=== PATIENT | female | born 1975 | race Caucasian/White ===

== ENCOUNTER → 2017-11-28 | Outpatient (CLI) | payer OTHER ==
--- NOTE | 2017-12-04 11:23 | MM ---
Reason for exam: screening (asymptomatic). Last mammogram was performed 2 years and 11 months ago. History: Family history of breast cancer in paternal grandmother and breast cancer in cousin. Benign MG stereo VAD BX LT of the left breast, January 02, 2015. Physical Findings: A clinical breast exam by your physician is recommended on an annual basis and results should be correlated with mammographic findings. MG Screening Mammo w CAD Bilateral CC and MLO view(s) were taken. Prior study comparison: December 26, 2014, mammogram, performed at [facility]. October 05, 2014, mammogram, performed at [facility]. The breast tissue is heterogeneously dense. This may lower the sensitivity of mammography. Finding: There are indeterminate calcifications in the upper outer quadrant of the left breast. New finding since December 26, 2014 and October 05, 2014. ASSESSMENT: Incomplete: need additional imaging evaluation, BI-RAD 0 RECOMMENDATION: Special view mammogram of the left breast. [facility] will attempt to contact patient to return for supplemental views.
== END | disposition home or self-care (01) ==
LOC: RADMAMWWP 11:25
PROVIDERS: ATTEND Obstetrics & Gynecology
DX: Z12.31 Encounter for screening mammogram for malignant neoplasm of breast (principal)
CPT/HCPCS: 77067

== ENCOUNTER → 2017-12-17 | Outpatient (CLI) | payer OTHER ==
--- NOTE | 2017-12-17 12:00 | MM ---
Reason for exam: additional evaluation requested from abnormal screening. Last mammogram was performed 1 month ago. History: Family history of breast cancer in paternal grandmother and breast cancer in cousin. Benign MG stereo VAD BX LT of the left breast, January 02, 2015. Physical Findings: Nurse did not find any significant physical abnormalities on exam. MG Work Up Mamm w CAD LT Spot compression CC and spot compression MLO view(s) were taken of the left breast. Prior study comparison: November 28, 2017, bilateral MG screening mammo w CAD. December 26, 2014, mammogram, performed at [facility]. The breast tissue is heterogeneously dense. This may lower the sensitivity of mammography. Finding: There are typically benign fine, diffuse, regional calcifications in the upper outer quadrant, middle position of the left breast. There is no discrete abnormality on compression. Focal asymmetry left upper outer quadrant. No significant changes in finding since November 28, 2017 and December 26, 2014. These results were verbally communicated with the patient and result sheet given to the patient on 12/17/17. ASSESSMENT: Benign, BI-RAD 2 RECOMMENDATION: Return to routine screening mammogram schedule for both breasts.
== END | disposition home or self-care (01) ==
LOC: RADMAMWWP 10:44
PROVIDERS: ATTEND Obstetrics & Gynecology
DX: R92.8 Other abnormal and inconclusive findings on diagnostic imaging of breast (principal)
CPT/HCPCS: 77065

== ENCOUNTER 2018-06-06 11:23 | Inpatient (IN) | payer OTHER ==
[2018-06-06] MEDS: SODIUM CHLORIDE 0.9% 500 ML IV SCH (12:52)
[2018-06-06 12:57] LABS: Basophils % (A) 0 %; Eosinophils # (A) 0.2 k/uL (0-0.7); Eosinophils % (A) 1 %; HGB 16.3 gm/dL (11.4-16.0); Lymphocytes # (A) 1.8 k/uL (1.0-4.8); Lymphocytes % (A) 12 %; MCH 33.4 pg (25.0-35.0); MCV 98.3 fL (80.0-100.0); Mean Platelet Volume 6.9; Monocytes # (A) 0.8 k/uL (0-1.0); Monocytes % (A) 5 %; Neutrophils # (A) 12.3 k/uL (1.3-7.7); Neutrophils % (A) 81 %; Platelet Count 320 k/uL (150-450); RBC 4.88 m/uL (3.80-5.40); RDW 12.3 % (11.5-15.5); WBC 15.2 k/uL (3.8-10.6)
[2018-06-06 13:05] LABS: INR 0.9 (<1.2); Partial Thromboplastin Time 24.1 sec (22.0-30.0); Prothrombin Time 9.3 sec (9.0-12.0)
[2018-06-06 13:06] LABS: ALT 118 U/L (9-52); AST 29 U/L (14-36); Alkaline Phosphatase 76 U/L (38-126); Anion Gap 9 mmol/L; Blood Urea Nitrogen 14 mg/dL (7-17); Calcium 9.4 mg/dL (8.4-10.2); Carbon Dioxide 23 mmol/L (22-30); Chloride 105 mmol/L (98-107); Glucose 100 mg/dL (74-99); Sodium 137 mmol/L (137-145); Total Bilirubin 1.1 mg/dL (0.2-1.3); Total Protein 6.8 g/dL (6.3-8.2)
[2018-06-06] MEDS ORDERED: IBUPROFEN 800 MG TAB PO STA (13:22)
--- NOTE | 2018-06-06 13:22 | ED ---
General Adult HPI - General Chief complaint: Abdominal Pain Stated complaint: Abd.pain Time Seen by Provider: 06/06/18 12:14 Source: patient Mode of arrival: ambulatory Limitations: no limitations - History of Present Illness Initial comments: Sejal is a 42 yo F with PMH listed below who presents to the ED today for evaluation of lower abdominal pain. Patient reports that she was seen by her primary care physician earlier in the week and diagnosed with an upper respiratory tract infection, she was prescribed azithromycin which she began taking on Thursday. Patient reports on Thursday she developed diarrhea which persisted throughout the week. She completed her course of azithromycin on Thursday and states that she has not had diarrhea since that time, however she has had progressively worsening lower abdominal pain and constipation. Patient reports that she had pain constantly throughout the day yesterday, pain is worse with movement or palpation. She attempted to sleep it off but this morning states the pain had increased in severity so she went to an urgent care where a urinalysis revealed that she had no urinary tract infection and she was advised to come to the ER for further evaluation. Patient has no history or known family history of any inflammatory bowel disease or early colon cancer. She has never had a colonoscopy been evaluated by gastroenterology for any reason. Patient complains of subjective fever, chills, nausea, decreased appetite, recent diarrhea, constipation and abdominal pain. She denies any chest pain, palpitations or shortness of breath. She denies any rashes, numbness and tingling in her extremities or pain. - Related Data Home Medications Medication Instructions Recorded Confirmed No Known Home Medications 06/06/18 06/06/18 Allergies Allergy/AdvReac Type Severity Reaction Status Date / Time Opioids - Morphine Analogues AdvReac Nausea & Verified 06/06/18 12:07 Vomiting Review of Systems ROS Statement: Those systems with pertinent positive or pertinent negative responses have been documented in the HPI. ROS Other: All systems not noted in ROS Statement are negative. Constitutional: Reports: fever (subjective), chills ENT: Denies: throat pain Respiratory: Reports: cough (earlier this week, resolved) Cardiovascular: Denies: chest pain, palpitations Endocrine: Reports: fatigue Gastrointestinal: Reports: abdominal pain, nausea, diarrhea, constipation Genitourinary: Denies: urgency, dysuria Musculoskeletal: Denies: back pain Skin: Denies: rash Neurological: Denies: headache Hematological/Lymphatic: Denies: easy bleeding, easy bruising Past Medical History Past Medical History: Hyperlipidemia Additional Past Medical History / Comment(s): endometriosis History of Any Multi-Drug Resistant Organisms: None Reported Past Surgical History: Breast Surgery, Tubal Ligation, Uterine Ablation Additional Past Surgical History / Comment(s): D & C X3. LAPAROSCOPY. REPAIR OF DRILL INJURY TO RT HAND. LT BREAST BX Past Anesthesia/Blood Transfusion Reactions: Motion Sickness, Postoperative Nausea & Vomiting (PONV) Past Psychological History: Anxiety Smoking Status: Current every day smoker Past Alcohol Use History: Occasional Past Drug Use History: None Reported - Past Family History Mother Family Medical History: No Reported History General Exam Limitations: no limitations General appearance: alert, other (appears uncomfortable) Head exam: Present: atraumatic, normocephalic Eye exam: Present: normal appearance, PERRL ENT exam: Present: mucous membranes dry Neck exam: Present: normal inspection Respiratory exam: Absent: respiratory distress Cardiovascular Exam: Present: normal rhythm, tachycardia GI/Abdominal exam: Present: soft, tenderness, diminished bowel sounds Rectal exam: Present: deferred Extremities exam: Present: normal inspection Back exam: Present: normal inspection Neurological exam: Present: alert, oriented X3 Psychiatric exam: Present: normal affect, normal mood Skin exam: Present: warm, dry Course Vital Signs 06/06/18 06/06/18 12:05 12:54 Temperature 100.2 F H Pulse Rate 106 H 96 Respiratory 18 18 Rate Blood Pressure 113/74 123/57 O2 Sat by Pulse 97 93 L Oximetry - Reevaluation(s) Reevaluation #1: Patient was updated on CT findings, plan for admission for IV antibiotics and evaluation by general surgery. 06/06/18 14:50 Medical Decision Making - Medical Decision Making Patient was seen and evaluated, history was obtained from the patient and review of medical record for metastatic breast The patient with recent antibiotic use now presenting with lower abdominal pain , subjective fever and chills Labs and imaging were ordered Patient became febrile and Motrin was ordered Labs reveal leukocytosis, no evidence of a urinary tract infection Computed tomography scan reveals diverticulitis with small perforation with abscess. At this time a source for sepsis was identified and sepsis was identified. IV antibiotics were ordered as well as lactic and blood cultures. Patient was updated on the findings and is agreeable to plan for IV antibiotics and admission to the hospital for evaluation by general surgery. Patient care was discussed with Dr. Cheema of the Gen. surgery team who agrees with antibiotic choice, patient to be made nothing by mouth and admitted to the hospital. Admission orders were placed. - Lab Data Result diagrams: 06/06/18 12:48 06/06/18 12:48 Lab Results 06/06/18 06/06/18 06/06/18 Range/Units 12:18 12:40 12:48 WBC 15.2 H (3.8-10.6) k/uL RBC 4.88 (3.80-5.40) m/uL Hgb 16.3 H (11.4-16.0) gm/dL Hct 48.0 H (34.0-46.0) % MCV 98.3 (80.0-100.0) fL MCH 33.4 (25.0-35.0) pg MCHC 34.0 (31.0-37.0) g/dL RDW 12.3 (11.5-15.5) % Plt Count 320 (150-450) k/uL Neutrophils % 81 % Lymphocytes % 12 % Monocytes % 5 % Eosinophils % 1 % Basophils % 0 % Neutrophils # 12.3 H (1.3-7.7) k/uL Lymphocytes # 1.8 (1.0-4.8) k/uL Monocytes # 0.8 (0-1.0) k/uL Eosinophils # 0.2 (0-0.7) k/uL Basophils # 0.0 (0-0.2) k/uL PT (9.0-12.0) sec INR (<1.2) APTT (22.0-30.0) sec Sodium (137-145) mmol/L Potassium (3.5-5.1) mmol/L Chloride (98-107) mmol/L Carbon Dioxide (22-30) mmol/L Anion Gap mmol/L BUN (7-17) mg/dL Creatinine (0.52-1.04) mg/dL Est GFR (CKD-EPI)AfAm (>60 ml/min/1.73 sqM) Est GFR (CKD-EPI)NonAf (>60 ml/min/1.73 sqM) Glucose (74-99) mg/dL Plasma Lactic Acid [place] 0.9 (0.7-2.0) mmol/L Calcium (8.4-10.2) mg/dL Total Bilirubin (0.2-1.3) mg/dL AST (14-36) U/L ALT (9-52) U/L Alkaline Phosphatase (38-126) U/L Total Protein (6.3-8.2) g/dL Albumin (3.5-5.0) g/dL Urine Color Yellow Urine Appearance Cloudy H (Clear) Urine pH 6.5 (5.0-8.0) Ur Specific [place] 1.012 (1.001-1.035) Urine Protein Negative (Negative) Urine Glucose (UA) Negative (Negative) Urine Ketones Negative (Negative) Urine Blood Negative (Negative) Urine Nitrite Negative (Negative) Urine Bilirubin Negative (Negative) Urine Urobilinogen <2.0 (<2.0) mg/dL Ur Leukocyte Esterase Negative (Negative) Urine RBC 1 (0-5) /hpf Urine WBC 3 (0-5) /hpf Ur Squamous Epith Cells 12 H (0-4) /hpf Amorphous Sediment Rare H (None) /hpf Urine Bacteria Moderate H (None) /hpf Urine Mucus Occasional H (None) /hpf 06/06/18 06/06/18 Range/Units 12:48 12:48 WBC (3.8-10.6) k/uL RBC (3.80-5.40) m/uL Hgb (11.4-16.0) gm/dL Hct (34.0-46.0) % MCV (80.0-100.0) fL MCH (25.0-35.0) pg MCHC (31.0-37.0) g/dL RDW (11.5-15.5) % Plt Count (150-450) k/uL Neutrophils % % Lymphocytes % % Monocytes % % Eosinophils % % Basophils % % Neutrophils # (1.3-7.7) k/uL Lymphocytes # (1.0-4.8) k/uL Monocytes # (0-1.0) k/uL Eosinophils # (0-0.7) k/uL Basophils # (0-0.2) k/uL PT 9.3 (9.0-12.0) sec INR 0.9 (<1.2) APTT 24.1 (22.0-30.0) sec Sodium 137 (137-145) mmol/L Potassium 4.0 (3.5-5.1) mmol/L Chloride 105 (98-107) mmol/L Carbon Dioxide 23 (22-30) mmol/L Anion Gap 9 mmol/L BUN 14 (7-17) mg/dL Creatinine 0.73 (0.52-1.04) mg/dL Est GFR (CKD-EPI)AfAm >90 (>60 ml/min/1.73 sqM) Est GFR (CKD-EPI)NonAf >90 (>60 ml/min/1.73 sqM) Glucose 100 H (74-99) mg/dL Plasma Lactic Acid [place] (0.7-2.0) mmol/L Calcium 9.4 (8.4-10.2) mg/dL Total Bilirubin 1.1 (0.2-1.3) mg/dL AST 29 (14-36) U/L ALT 118 H (9-52) U/L Alkaline Phosphatase 76 (38-126) U/L Total Protein 6.8 (6.3-8.2) g/dL Albumin 4.0 (3.5-5.0) g/dL Urine Color Urine Appearance (Clear) Urine pH (5.0-8.0) Ur Specific [place] (1.001-1.035) Urine Protein (Negative) Urine Glucose (UA) (Negative) Urine Ketones (Negative) Urine Blood (Negative) Urine Nitrite (Negative) Urine Bilirubin (Negative) Urine Urobilinogen (<2.0) mg/dL Ur Leukocyte Esterase (Negative) Urine RBC (0-5) /hpf Urine WBC (0-5) /hpf Ur Squamous Epith Cells (0-4) /hpf Amorphous Sediment (None) /hpf Urine Bacteria (None) /hpf Urine Mucus (None) /hpf Disposition Clinical Impression: Diverticulitis, Sepsis Disposition: ADMITTED IP TO THIS HOSP Decision Time: 14:35
[2018-06-06 13:36] LABS: Amorphous Sediment,Urine Rare /hpf; Appearance,Urine Cloudy (Clear); Bacteria,Urine Moderate /hpf; Bilirubin,Urine Negative (Negative); Blood,Urine Negative (Negative); Color,Urine Yellow; Glucose,Urine (UA) Negative (Negative); Ketones,Urine Negative (Negative); Leukocyte Esterase,Urine Negative (Negative); Mucus,Urine Occasional /hpf; Nitrite,Urine Negative (Negative); PH, Urine 6.5 (5.0-8.0); Protein,Urine Negative (Negative); RBC,Urine 1 /hpf (0-5); Specific Gravity,Urine 1.012 (1.001-1.035); Squamous Epithelial Cell,Urine 12 /hpf (0-4); Urobilinogen,Urine <2.0 mg/dL (<2.0); WBC,Urine 3 /hpf (0-5)
--- NOTE | 2018-06-06 14:31 | CT ---
EXAMINATION TYPE: CT abdomen pelvis w con DATE OF EXAM: 06/06/2018 COMPARISON: None HISTORY: Stomach pains and fever CT DLP: 579.1 mGycm Automated exposure control for dose reduction was used. TECHNIQUE: Helical acquisition of images from the lung bases through the pelvis have been completed. CONTRAST: Performed without Oral Contrast and with IV Contrast, patient injected with 100 mL of Isovue 300. FINDINGS: LUNG BASES: No significant abnormality is appreciated. AORTA: No significant abnormality is appreciated. LIVER/GB: No significant abnormality is appreciated. PANCREAS: No significant abnormality is seen. SPLEEN: No significant abnormality is seen. ADRENALS: No significant abnormality is seen. KIDNEYS: No significant abnormality is seen. REPRODUCTIVE ORGANS: No significant abnormality is seen BOWEL: Inflammatory changes present with associated diverticular change in the sigmoid colon. Minima l diverticular abscess is present axial image 72, there is air-fluid level, maximal dimension only ap proximately 1.5 cm. FREE AIR: Small foci of free air are present. ASCITES: None visible. PELVIC ADENOPATHY: None visualized. RETROPERITONEAL ADENOPATHY: No Retroperitoneal Adenopathy visible. URINARY BLADDER: No significant abnormality is seen. OSSEOUS STRUCTURES: No significant abnormality is seen. IMPRESSION: DIVERTICULITIS WITH SMALL DIVERTICULAR ABSCESS, SOME LOCAL EXTRALUMINAL AIR COMPATIBLE WITH PERFORATI ON. REPORT RELAYED TO DENNISE TELEPHONICALLY AT THE TIME OF INTERPRETATION.
[2018-06-06] MEDS ORDERED: PIPERACILLIN-TAZOBACTAM 3.375 GM in DEXTROSE/WATER 1 50ML.BAG IVPB STA (14:33)
[2018-06-06] MEDS ORDERED: metroNIDAZOLE-NS PMX 500 MG in SALINE 1 100ML.BAG IVPB STA (14:40)
[2018-06-06] MEDS ORDERED: NALOXONE 0.4 MG/ML 1 ML VIAL IV PRN (14:42)
[2018-06-06] MEDS: SODIUM CHLORIDE 0.9% 1,000 ML IV SCH (15:30)
[2018-06-06 16:49] VITALS: BMI 25.2
[2018-06-06] MEDS: ONDANSETRON 4 MG/2 ML VIAL IVP PRN (18:38)
--- NOTE | 2018-06-06 19:35 | P.GSHP ---
History of Present Illness H&P Date: 06/06/18 Chief Complaint: Diverticulitis The patient's a 42-year-old female that presented to the emergency room with a several-day history of abdominal pain. The last 2-3 days she is pretty much been laying on the couch and sleeping. She hasn't felt like eating anything or drinking much yesterday. She was having vomiting yesterday. She was treated for an upper respiratory infection with Zithromax earlier in the week. She also began developing diarrhea on Thursday and that's been persisting. Never had diverticulitis in the past. Normally her bowels are regular. There is no family history of GI malignancy or inflammatory bowel disease. She's never had a colonoscopy. She's had chills but denies fever. - Review of Systems All systems: negative Past Medical History Past Medical History: Hyperlipidemia Additional Past Medical History / Comment(s): endometriosis History of Any Multi-Drug Resistant Organisms: None Reported Past Surgical History: Breast Surgery, Tubal Ligation, Uterine Ablation Additional Past Surgical History / Comment(s): D & C X3. LAPAROSCOPY. REPAIR OF DRILL INJURY TO RT HAND. LT BREAST BX Past Anesthesia/Blood Transfusion Reactions: Motion Sickness, Postoperative Nausea & Vomiting (PONV) Additional Past Anesthesia/Blood Transfusion Reaction / Comment(s): hard to wake up patient states Smoking Status: Current every day smoker - Past Family History Mother Family Medical History: No Reported History Medications and Allergies Home Medications Medication Instructions Recorded Confirmed Type Albuterol Inhaler [Ventolin Hfa 1 - 2 puff INHALATION RT-Q6H PRN 06/06/18 History Inhaler] Allergies Allergy/AdvReac Type Severity Reaction Status Date / Time Opioids - Morphine Analogues AdvReac Nausea & Verified 06/06/18 15:09 Vomiting Surgical - Exam Osteopathic Statement: *. No significant issues noted on an osteopathic structural exam other than those noted in the History and Physical/Consult. Vital Signs Temp Pulse Resp BP Pulse Ox 100.2 F H 106 H 18 113/74 97 06/06/18 12:05 06/06/18 12:05 06/06/18 12:05 06/06/18 12:05 06/06/18 12:05 - General well developed, well nourished, no distress - Eyes normal ocular movement - ENT no congestion - Neck trachea midline - Respiratory normal expansion, normal respiratory effort, clear to auscultation - Cardiovascular Rhythm: regular Abnormal Heart Sounds: no systolic murmur - Abdomen Abdomen: soft, tender (Left lower quadrant suprapubic), guarding (Voluntary guarding), rebound (Tender to percussion), no distended - Psychiatric oriented to time, oriented to person, oriented to place, speech is normal, memory intact Results - Labs 06/06/18 12:48 06/06/18 12:48 Abnormal Lab Results - Last 24 Hours (Table) 06/06/18 06/06/18 06/06/18 Range/Units 12:18 12:48 12:48 WBC 15.2 H (3.8-10.6) k/uL Hgb 16.3 H (11.4-16.0) gm/dL Hct 48.0 H (34.0-46.0) % Neutrophils # 12.3 H (1.3-7.7) k/uL Glucose 100 H (74-99) mg/dL ALT 118 H (9-52) U/L Urine Appearance Cloudy H (Clear) Ur Squamous Epith Cells 12 H (0-4) /hpf Amorphous Sediment Rare H (None) /hpf Urine Bacteria Moderate H (None) /hpf Urine Mucus Occasional H (None) /hpf Diabetes panel 06/06/18 Range/Units 12:48 Sodium 137 (137-145) mmol/L Potassium 4.0 (3.5-5.1) mmol/L Chloride 105 (98-107) mmol/L Carbon Dioxide 23 (22-30) mmol/L BUN 14 (7-17) mg/dL Creatinine 0.73 (0.52-1.04) mg/dL Glucose 100 H (74-99) mg/dL Calcium 9.4 (8.4-10.2) mg/dL AST 29 (14-36) U/L ALT 118 H (9-52) U/L Alkaline Phosphatase 76 (38-126) U/L Total Protein 6.8 (6.3-8.2) g/dL Albumin 4.0 (3.5-5.0) g/dL Calcium panel 06/06/18 Range/Units 12:48 Calcium 9.4 (8.4-10.2) mg/dL Albumin 4.0 (3.5-5.0) g/dL Pituitary panel 06/06/18 Range/Units 12:48 Sodium 137 (137-145) mmol/L Potassium 4.0 (3.5-5.1) mmol/L Chloride 105 (98-107) mmol/L Carbon Dioxide 23 (22-30) mmol/L BUN 14 (7-17) mg/dL Creatinine 0.73 (0.52-1.04) mg/dL Glucose 100 H (74-99) mg/dL Calcium 9.4 (8.4-10.2) mg/dL Adrenal panel 06/06/18 Range/Units 12:48 Sodium 137 (137-145) mmol/L Potassium 4.0 (3.5-5.1) mmol/L Chloride 105 (98-107) mmol/L Carbon Dioxide 23 (22-30) mmol/L BUN 14 (7-17) mg/dL Creatinine 0.73 (0.52-1.04) mg/dL Glucose 100 H (74-99) mg/dL Calcium 9.4 (8.4-10.2) mg/dL Total Bilirubin 1.1 (0.2-1.3) mg/dL AST 29 (14-36) U/L ALT 118 H (9-52) U/L Alkaline Phosphatase 76 (38-126) U/L Total Protein 6.8 (6.3-8.2) g/dL Albumin 4.0 (3.5-5.0) g/dL - Imaging CT scan - abdomen: report reviewed, image reviewed Assessment and Plan (1) Perforation of intestine due to diverticulitis of gastrointestinal tract Current Visit: Yes Status: Acute Code(s): K63.1 - PERFORATION OF INTESTINE ( NONTRAUMATIC); K57.92 - DVTRCLI OF INTEST, PART UNSP, W/O PERF OR ABSCESS W/O BLEED SNOMED Code(s): 6309592515781325 (2) Diverticulitis Current Visit: Yes Status: Acute Code(s): K57.92 - DVTRCLI OF INTEST, PART UNSP, W/O PERF OR ABSCESS W/O BLEED SNOMED Code(s): 411264165 (3) Sepsis Current Visit: Yes Status: Acute Code(s): A41.9 - SEPSIS, UNSPECIFIED ORGANISM SNOMED Code(s): 09728091 Plan: The study appears to be diverticulitis with a small contained perforation. We' ll attempt to treat this medically with IV antibiotics and bowel rest. We'll do DVT and ulcer prophylaxis. Explained to her and her that if she shows signs of worsening she may need to go for emergency surgery which would result in a temporary colostomy formation. We'll monitor her closely with further recommendations to follow.
[2018-06-06] MEDS: MORPHINE SULFATE 4 MG/ML SYRINGE IV PRN ×2 (19:58→20:11)
[2018-06-06] MEDS: KETOROLAC 30 MG/ML 1 ML VIAL IVP SCH (20:08)
[2018-06-07] MEDS: KETOROLAC 30 MG/ML 1 ML VIAL IVP SCH ×4 (00:01→18:01)
[2018-06-07] MEDS: SODIUM CHLORIDE 0.9% 1,000 ML IV SCH (00:10)
[2018-06-07 06:44] LABS: Basophils # (A) 0.1 k/uL (0-0.2); Basophils % (A) 1 %; Eosinophils # (A) 0.4 k/uL (0-0.7); Eosinophils % (A) 3 %; HCT 43.5 % (34.0-46.0); HGB 14.7 gm/dL (11.4-16.0); Lymphocytes # (A) 1.4 k/uL (1.0-4.8); Lymphocytes % (A) 11 %; MCH 33.7 pg (25.0-35.0); MCHC 33.7 g/dL (31.0-37.0); MCV 99.9 fL (80.0-100.0); Mean Platelet Volume 7.2; Monocytes # (A) 0.7 k/uL (0-1.0); Monocytes % (A) 5 %; Neutrophils # (A) 9.8 k/uL (1.3-7.7); Neutrophils % (A) 79 %; Platelet Count 298 k/uL (150-450); RBC 4.36 m/uL (3.80-5.40); RDW 12.3 % (11.5-15.5); WBC 12.4 k/uL (3.8-10.6)
[2018-06-07 06:58] LABS: ALT 81 U/L (9-52); AST 22 U/L (14-36); Alkaline Phosphatase 62 U/L (38-126); Anion Gap 6 mmol/L; Blood Urea Nitrogen 14 mg/dL (7-17); Calcium 8.5 mg/dL (8.4-10.2); Carbon Dioxide 21 mmol/L (22-30); Chloride 111 mmol/L (98-107); Glucose 89 mg/dL (74-99); Magnesium 1.9 mg/dL (1.6-2.3); Potassium 4.2 mmol/L (3.5-5.1); Sodium 138 mmol/L (137-145); Total Protein 5.5 g/dL (6.3-8.2)
[2018-06-07] MEDS: PANTOPRAZOLE 40 MG/10 ML VIAL IVP SCH (08:04)
--- NOTE | 2018-06-07 15:19 | P.PN ---
Subjective Progress Note Date: 06/07/18 Principal diagnosis: Diverticulitis The patient's a 42-year-old female that was admitted with acute diverticulitis with small abscess. She's feeling better than when she came in. She still having abdominal pains. She's had a fever to 101. No nausea or vomiting. She is hungry. Objective - Vital Signs Vital signs: Vital Signs Temp 101 F H 06/07/18 07:00 Pulse 91 06/07/18 08:07 Resp 18 06/07/18 08:07 BP 113/56 06/07/18 07:00 Pulse Ox 95 06/07/18 07:00 Intake & Output 06/06/18 06/07/18 06/07/18 18:59 06:59 18:59 Intake Total 1500 875 Balance 1500 875 Weight 64.5 kg Intake: Intake, IV Titration 1500 875 Amount Sodium Chloride 0.9% 1, 1500 875 000 ml @ 125 mls/hr IV . Q8H [facility] Rx#:[id number] Other: Voiding Method Toilet Toilet Toilet # Voids 2 - Constitutional General appearance: Present: cooperative, no acute distress - Respiratory Respiratory: bilateral: CTA - Cardiovascular Rhythm: regular - Gastrointestinal General gastrointestinal: Present: normal bowel sounds, tenderness (Mainly left lower quadrant but she does have some diffuse tenderness. There is some mild voluntary guarding and tympany to percussion) - Labs CBC & Chem 7: 06/07/18 06:18 06/07/18 06:18 Labs: Abnormal Lab Results - Last 24 Hours (Table) 06/07/18 06/07/18 06/07/18 Range/Units 06:18 06:18 06:18 WBC 12.4 H (3.8-10.6) k/uL Neutrophils # 9.8 H (1.3-7.7) k/uL Chloride 111 H (98-107) mmol/L Carbon Dioxide 21 L (22-30) mmol/L Plasma Lactic Acid [place] <0.5 L (0.7-2.0) mmol/L ALT 81 H (9-52) U/L Total Protein 5.5 L (6.3-8.2) g/dL Albumin 3.0 L (3.5-5.0) g/dL Microbiology - Last 24 Hours (Table) 06/06/18 12:48 Blood Culture - Preliminary Blood No Growth after 24 hours 06/06/18 12:18 Urine Culture - Preliminary Urine,Clean Catch Assessment and Plan (1) Perforation of intestine due to diverticulitis of gastrointestinal tract Current Visit: Yes Status: Acute Code(s): K63.1 - PERFORATION OF INTESTINE ( NONTRAUMATIC); K57.92 - DVTRCLI OF INTEST, PART UNSP, W/O PERF OR ABSCESS W/O BLEED SNOMED Code(s): 1969420463254025 (2) Diverticulitis Current Visit: Yes Status: Acute Code(s): K57.92 - DVTRCLI OF INTEST, PART UNSP, W/O PERF OR ABSCESS W/O BLEED SNOMED Code(s): 313238671 (3) Sepsis Current Visit: Yes Status: Acute Code(s): A41.9 - SEPSIS, UNSPECIFIED ORGANISM SNOMED Code(s): 41450055 Plan: We'll continue with IV antibiotics. Nursing did notify me that the antibiotics were not reordered so that will be done. Continue DVT and ulcer prophylaxis. Continue to try conservative medical therapy. Questions were encouraged and answered.
[2018-06-07] MEDS: metroNIDAZOLE-NS PMX 500 MG in SALINE 1 100ML.BAG IVPB SCH (16:33)
[2018-06-07] MEDS: ONDANSETRON 4 MG/2 ML VIAL IVP PRN (17:05)
[2018-06-07] MEDS: PIPERACILLIN-TAZOBACTAM 3.375 GM in DEXTROSE/WATER 1 50ML.BAG IVPB SCH (18:01)
[2018-06-08] MEDS: KETOROLAC 30 MG/ML 1 ML VIAL IVP SCH ×4 (00:01→16:35)
[2018-06-08] MEDS: metroNIDAZOLE-NS PMX 500 MG in SALINE 1 100ML.BAG IVPB SCH ×3 (00:01→15:49)
[2018-06-08] MEDS: PIPERACILLIN-TAZOBACTAM 3.375 GM in DEXTROSE/WATER 1 50ML.BAG IVPB SCH ×3 (00:01→16:05)
[2018-06-08] MEDS: SODIUM CHLORIDE 0.9% 1,000 ML IV SCH ×4 (00:06→15:49)
[2018-06-08] MEDS: PANTOPRAZOLE 40 MG/10 ML VIAL IVP SCH (08:00)
[2018-06-08 09:00] LABS: Basophils # (A) 0.1 k/uL (0-0.2); Basophils % (A) 0 %; Eosinophils # (A) 0.4 k/uL (0-0.7); Eosinophils % (A) 3 %; HGB 14.2 gm/dL (11.4-16.0); Lymphocytes # (A) 1.4 k/uL (1.0-4.8); Lymphocytes % (A) 11 %; MCH 34.2 pg (25.0-35.0); MCHC 33.8 g/dL (31.0-37.0); MCV 101.2 fL (80.0-100.0); Monocytes # (A) 0.8 k/uL (0-1.0); Monocytes % (A) 6 %; Neutrophils # (A) 9.8 k/uL (1.3-7.7); Neutrophils % (A) 78 %; Platelet Count 316 k/uL (150-450); RBC 4.14 m/uL (3.80-5.40); RDW 12.3 % (11.5-15.5); WBC 12.6 k/uL (3.8-10.6)
[2018-06-08 09:15] LABS: ALT 130 U/L (9-52); AST 99 U/L (14-36); Albumin 2.9 g/dL (3.5-5.0); Alkaline Phosphatase 190 U/L (38-126); Anion Gap 6 mmol/L; Blood Urea Nitrogen 12 mg/dL (7-17); Calcium 8.4 mg/dL (8.4-10.2); Carbon Dioxide 21 mmol/L (22-30); Chloride 111 mmol/L (98-107); Glucose 82 mg/dL (74-99); Potassium 4.2 mmol/L (3.5-5.1); Sodium 138 mmol/L (137-145); Total Bilirubin 1.7 mg/dL (0.2-1.3); Total Protein 5.3 g/dL (6.3-8.2)
--- NOTE | 2018-06-08 13:18 | P.PN ---
Subjective Progress Note Date: 06/08/18 Principal diagnosis: Diverticulitis The patient is feeling better today. She says she has some general body achiness. The abdominal discomfort is improved. Hungry and she is anxious to go home. She declines the need for a NicoDerm patch. Objective - Vital Signs Vital signs: Vital Signs Temp 98.4 F 06/08/18 06:14 Pulse 83 06/08/18 06:14 Resp 18 06/08/18 06:14 BP 115/59 06/08/18 06:14 Pulse Ox 98 06/08/18 06:14 Intake & Output 06/07/18 06/08/18 06/08/18 18:59 06:59 18:59 Intake Total 875 1700 Balance 875 1700 Intake: Intake, IV Titration 875 1700 Amount Piperacillin-Tazobactam 3 100 .375 gm In Dextrose/Water 1 50ml.bag @ 12.5 mls/hr IVPB Q8HR [facility]I Rx#: [id number] Sodium Chloride 0.9% 1, 875 1500 000 ml @ 125 mls/hr IV . Q8H [facility] Rx#:[id number] metroNIDAZOLE-NS PMX 500 100 mg In Saline 1 100ml.bag @ 100 mls/hr IVPB Q8HR [facility]I Rx#:[id number] Other: Voiding Method Toilet Toilet Toilet - Constitutional General appearance: Present: cooperative, no acute distress - Respiratory Respiratory: bilateral: CTA - Gastrointestinal General gastrointestinal: Present: normal bowel sounds, soft, tenderness (Very minimal tenderness today compared to yesterday. No guarding or rebound) - Labs CBC & Chem 7: 06/08/18 08:06 06/08/18 08:06 Labs: Abnormal Lab Results - Last 24 Hours (Table) 06/08/18 06/08/18 Range/Units 08:06 08:06 WBC 12.6 H (3.8-10.6) k/uL MCV 101.2 H (80.0-100.0) fL Neutrophils # 9.8 H (1.3-7.7) k/uL Chloride 111 H (98-107) mmol/L Carbon Dioxide 21 L (22-30) mmol/L Total Bilirubin 1.7 H (0.2-1.3) mg/dL AST 99 H (14-36) U/L ALT 130 H (9-52) U/L Alkaline Phosphatase 190 H (38-126) U/L Total Protein 5.3 L (6.3-8.2) g/dL Albumin 2.9 L (3.5-5.0) g/dL Microbiology - Last 24 Hours (Table) 06/06/18 12:18 Urine Culture - Final Urine,Clean Catch 06/06/18 12:48 Blood Culture - Preliminary Blood No Growth after 24 hours Assessment and Plan (1) Perforation of intestine due to diverticulitis of gastrointestinal tract Current Visit: Yes Status: Acute Code(s): K63.1 - PERFORATION OF INTESTINE ( NONTRAUMATIC); K57.92 - DVTRCLI OF INTEST, PART UNSP, W/O PERF OR ABSCESS W/O BLEED SNOMED Code(s): 6775768430964801 (2) Diverticulitis Current Visit: Yes Status: Acute Code(s): K57.92 - DVTRCLI OF INTEST, PART UNSP, W/O PERF OR ABSCESS W/O BLEED SNOMED Code(s): 707939151 (3) Sepsis Current Visit: Yes Status: Acute Code(s): A41.9 - SEPSIS, UNSPECIFIED ORGANISM SNOMED Code(s): 35406669 Plan: She'll be started on clear liquid diet and advance as tolerated. If she continues to progress she should be able to be discharged in the next 24-48 hours on oral antibiotics. She'll need outpatient colonoscopy and 60 weeks
[2018-06-09] MEDS ORDERED: KETOROLAC 30 MG/ML 1 ML VIAL ONE
[2018-06-09] MEDS: SODIUM CHLORIDE 0.9% 1,000 ML IV SCH (07:45)
[2018-06-09] MEDS: KETOROLAC 30 MG/ML 1 ML VIAL IVP SCH (07:46)
[2018-06-09] MEDS: metroNIDAZOLE-NS PMX 500 MG in SALINE 1 100ML.BAG IVPB SCH ×2 (07:46→07:56)
[2018-06-09] MEDS: PIPERACILLIN-TAZOBACTAM 3.375 GM in DEXTROSE/WATER 1 50ML.BAG IVPB SCH ×2 (07:47→09:12)
[2018-06-09] MEDS: PANTOPRAZOLE 40 MG/10 ML VIAL IVP SCH (09:07)
[2018-06-09 09:41] VITALS: BP 114/78; PULSE 86; RESP 20; TEMP 98.6
--- NOTE | 2018-06-09 10:08 | P.DS ---
Providers Date of admission: 06/06/18 14:42 Expected date of discharge: 06/09/18 Attending physician: Kristy Cheema Primary care physician: Payam Palomares - Discharge Diagnosis(es) (1) Perforation of intestine due to diverticulitis of gastrointestinal tract Current Visit: Yes Status: Acute (2) Diverticulitis Current Visit: Yes Status: Acute (3) Sepsis Current Visit: Yes Status: Acute Hospital Course: The patient presented to the ED with abdominal pain. Workup showed acute diverticulitis with microperforation and abscess. She was made nothing by mouth. She was given IV antibiotics. She slowly improved. The fevers improved. The white count improved. Her pain improved and she was started on a diet. By 718 she was tolerating a diet without fever and was anxious to go home Pertinent Studies: CT, lab Patient Condition at Discharge: Good Plan - Discharge Summary Discharge Rx Participant: No New Discharge Prescriptions: New Ciprofloxacin HCl [Cipro] 500 mg PO Q12HR 10 Days #20 tablet metroNIDAZOLE [Flagyl] 500 mg PO TID 10 Days #30 tab No Action Albuterol Inhaler [Ventolin Hfa Inhaler] 1 - 2 puff INHALATION RT-Q6H PRN PRN Reason: Shortness Of Breath Discharge Medication List Albuterol Inhaler [Ventolin Hfa Inhaler] 1 - 2 puff INHALATION RT-Q6H PRN [History] Ciprofloxacin HCl [Cipro] 500 mg PO Q12HR 10 Days #20 tablet 06/09/18 [Rx] metroNIDAZOLE [Flagyl] 500 mg PO TID 10 Days #30 tab 06/09/18 [Rx] Follow up Appointment(s)/Referral(s): Payam Palomares MD [Primary Care Provider] - 1-2 days Kristy Cheema DO [Doctor of Osteopathic Medicine] - 2 Weeks Patient Instructions/Handouts: Low Fiber Diet (DC), Diverticulitis (DC) Discharge Disposition: HOME SELF-CARE
== END 2018-06-09 11:40 | disposition home or self-care (01) | DRG 872 ==
LOC: EC 11:23 → 5MS5E 14:42 → 6PED 06-08 16:25
PROVIDERS: ADMIT Surgery; ATTEND Surgery
DX: A41.9 Sepsis, unspecified organism (principal); K57.20 Diverticulitis of large intestine with perforation and abscess without bleeding; E78.5 Hyperlipidemia, unspecified; F17.200 Nicotine dependence, unspecified, uncomplicated; Z79.899 Other long term (current) drug therapy; Z88.5 Allergy status to narcotic agent
CPT/HCPCS: 36415; 74177; 80053; 81001; 83605; 83735; 85025; 85610; 85730; 87040; 87086; 93005; 96361; 96365; 99285

== ENCOUNTER → 2018-12-06 | Outpatient (CLI) | payer OTHER ==
--- NOTE | 2018-12-06 14:26 | CT ---
EXAMINATION TYPE: CT abdomen pelvis w con DATE OF EXAM: 12/06/2018 COMPARISON: 06/06/2018 HISTORY: 43 year-old female lower abdominal pain. TECHNIQUE: Contiguous axial scanning of the abdomen and pelvis following administration of 100 ml Iso stephania 300 IV contrast. Delayed images through the kidneys and coronal/sagittal reconstructions perform ed. CT DLP: 481.6 mGycm Automated exposure control for dose reduction was used. FINDINGS: Heart normal size without pericardial effusion. Lung bases clear without pleural effusion. Liver borderline in size at 17.6 cm with diffuse low attenuation compatible with fatty infiltration. Small hiatal hernia. Portal venous system is patent. No biliary ductal dilatation. Gallbladder, adrenal glands, kidneys, spleen, and pancreas appear within normal limits. Graph no dila diana small bowel, free fluid, or free air. Scattered mild stool. Left hemicolonic diverticulosis, greatest in the mid to distal sigmoid. At the level of the mid sigmoid colon, there is more focal pericolonic fat stranding, refer to axial image 6 8 and coronal image 54 for some sales development representative images. There is a small, well-defined 1.7 cm mixed fluid and air collection in the left side of the pelvis, axial image 68 with suggestion of subtle extension to the left lateral wall of the distal sigmoid, co yael images 57 through 61. No significant surrounding inflammation here. Prominent distention of the urinary bladder to nearly 14 cm. Uterus and right ovary are visualized as well. 2.2 cm dominant follicle or functional cyst in the right ovary. No abnormal fluid collection i n the pelvis or pelvic lymphadenopathy seen. Bones: No osseous destructive process. IMPRESSION: 1. SIGMOID DIVERTICULOSIS. THERE IS MILD FAT STRANDING FOCALLY ALONG THE MID SIGMOID THAT COULD REPRE SENT PROMINENT PERICOLONIC VESSELS OR MILD ACUTE DIVERTICULITIS. THE PREVIOUS EXTENSIVE INFLAMMATORY CHANGES SEEN ON 06/06/2018 HAVE LARGELY RESOLVED. 2. HOWEVER, FINDINGS SUGGEST A RESIDUAL SMALL 1.7 CM CHRONIC WALLED OFF LEAK IN THE LEFT SIDE OF THE PELVIS, AXIAL IMAGE 68. SUSPECT SUBTLE FISTULOUS COMMUNICATION WITH THE DISTAL SIGMOID. NO SIGNIFICAN T INFLAMMATORY CHANGES HERE AT THE SITE OF CHRONIC ABSCESS. 3. MARKED DISTENTION OF THE URINARY BLADDER UP TO 14 CM. PLEASE ENSURE THAT THIS REPRESENTS VOLUNTARY RETENTION. 4. BORDERLINE HEPATOMEGALY (17.6 CM) WITH AT LEAST MODERATE HEPATIC STEATOSIS. 5. SMALL HIATAL HERNIA.
== END | disposition home or self-care (01) ==
LOC: RADCTMAIN 11:53
PROVIDERS: ATTEND Nurse Practitioner Family
DX: K57.30 Diverticulosis of large intestine without perforation or abscess without bleeding (principal); K76.0 Fatty (change of) liver, not elsewhere classified; K44.9 Diaphragmatic hernia without obstruction or gangrene; R16.0 Hepatomegaly, not elsewhere classified
CPT/HCPCS: 74177; Q9967

== ENCOUNTER → 2019-11-28 | Outpatient (CLI) | payer OTHER ==
--- NOTE | 2019-11-29 10:59 | MM ---
Reason for exam: screening (asymptomatic). Last mammogram was performed 1 year and 11 months ago. History: Family history of breast cancer in paternal grandmother and breast cancer in cousin. Benign MG stereo VAD BX LT of the left breast, January 02, 2015. Physical Findings: A clinical breast exam by your physician is recommended on an annual basis and results should be correlated with mammographic findings. MG Screening Mammo w CAD Bilateral CC and MLO view(s) were taken. Prior study comparison: December 17, 2017, left breast MG work up mamm w CAD LT. November 28, 2017, bilateral MG screening mammo w CAD. The breast tissue is heterogeneously dense. This may lower the sensitivity of mammography. There are biopsy proven benign regional left upper outer quadrant calcifications with biopsy marker. No suspicious abnormality. No significant changes when compared with prior studies. ASSESSMENT: Benign, BI-RAD 2 RECOMMENDATION: Routine screening mammogram of both breasts in 1 year.
== END | disposition home or self-care (01) ==
LOC: RADMAMWWP 09:39
PROVIDERS: ATTEND Obstetrics & Gynecology
DX: Z12.31 Encounter for screening mammogram for malignant neoplasm of breast (principal)
CPT/HCPCS: 77067